=== PATIENT | female | born 1960 | race Caucasian/White ===

== ENCOUNTER 2018-12-24 19:50 | Inpatient (IN) | payer SELFPAY ==
[~2018-12-24] VITALS: Ht 162.5 cm; Wt 68.2 kg
[~2018-12-24 19:50] MED LIST: BENTYL20 MG PO; CIPRO500 MG PO; FLAGYL500 MG PO; HYDROCODONE BIT1 T11 PO; NKHM; PROTONIX40 MG PO
[2018-12-24 19:54] VITALS: BP 137/79
[2018-12-24 20:24] LABS: BASO # 0.1 10*3/uL (0.0-0.1); BASO % 0.4 % (0.0-1.0); EOS # 0.1 10*3/uL (0.0-0.4); EOS % 0.8 % (1.0-4.0); HEMATOCRIT 50.5 % (37.0-47.0); HEMOGLOBIN 16.9 g/dl (12.0-16.0); LYMPH # 2.6 10*3/uL (1.3-4.4); LYMPH % 14.8 % (27.0-41.0); MEAN CORPUSCULAR HGB 30.1 pg (27.0-31.0); MEAN CORPUSCULAR HGB CONC 33.5 g/dl (33.0-37.0); MEAN PLATELET VOLUME 11.9 fl (9.6-12.3); MONO # 0.9 10*3/uL (0.1-1.0); MONO % 5.2 % (3.0-9.0); NEUT # 13.8 10*3/uL (2.3-7.9); NEUT % 78.4 % (47.0-73.0); PLATELET COUNT AUTOMATED 184 10*3/uL (130-400); RED BLOOD COUNT 5.61 10*6/uL (4.10-5.10); RED CELL DISTRI WIDTH 12.9 % (0-14.5); WHITE BLOOD COUNT 17.6 10*3/uL (4.8-10.8)
[2018-12-24 20:26] LABS: BILIRUBIN NEGATIVE (NEGATIVE); BLOOD TRACE-INTACT (NEGATIVE); CLARITY SL CLOUDY (CLEAR); COLOR YELLOW (YELLOW); GLUCOSE NEGATIVE (NEGATIVE); KETONE NEGATIVE (NEGATIVE); LEUKO ESTERASE TRACE (NEGATIVE); NITRITE NEGATIVE (NEGATIVE); SPECIFIC GRAVITY 1.015 (1.005-1.030); UROBILINOGEN 0.2 E.U./dl (0.2-1.0)
[2018-12-24 20:39] LABS: BACTERIA 1+; RBC 0-2 rbc/hpf (0-2)
[2018-12-24 20:46] LABS: ALBUMIN 3.7 gm/dl (3.1-4.5); ALKALINE PHOSPHATASE 85 U/L (45-117); BUN 12 mg/dl (7-24); CHLORIDE 104 mmol/L (98-107); CREATININE 0.84 mg/dL (0.55-1.02); LIPASE 98 U/L (73-393); SGOT/AST 17 IU/L (3-35); SGPT/ALT 34 U/L (12-78); SODIUM 137 mmol/L (136-145); TOTAL PROTEIN 7.8 gm/dL (6.4-8.2)
[2018-12-24 22:40] VITALS: BP 142/85
[2018-12-24 22:50] VITALS: BP 134/78
--- NOTE | 2018-12-24 22:50 | NUR ---
A 58, admitted to , under the services of VICTORINA Reyes DO with a diagnosis of . Chief complaint is ABDOMINAL PAIN. Patient arrived via CART from ER. Monitor applied. Initial assessment completed. Vital signs taken and recorded. VICTORINA REYES DO notified of admission to the unit. Orders received. See assessment for past medical history, medications and allergies. Patient and/or family oriented to unit. [facility] reviewed. Clothing/patient valuable form completed. TANIYA SANTIAGO
--- NOTE | 2018-12-25 00:15 | NUR ---
PATIENT REQUESTING PAIN MEDICATION FOR ABDOMINAL PAIN RATED 8/10 ON 0/10 SCALE. MORPHINE ADMINISTERED PRESCRIBED, WILL MONITOR FOR EFFECTIVENESS.
--- NOTE | 2018-12-25 01:15 | NUR ---
PATIENT RESTING WITH EYES CLOSED AT THIS TIME. RESPIRATIONS EASY AND UNLABORED ON ROOM AIR. CALL NEWELL WITHIN REACH. WILL MONITOR.
--- NOTE | 2018-12-25 03:23 | NUR ---
24 HR chart check completed.
--- NOTE | 2018-12-25 06:31 | NUR ---
PATIENT REQUESTING PAIN MEDICATION FOR ABDOMINAL PAIN RATED 8/10 ON 0/10 SCALE. MORPHINE ADMINISTERED PRESCRIBED. WILL MONITOR FOR EFFECTIVENESS.
[2018-12-25 07:13] LABS: ALBUMIN 3.1 gm/dl (3.1-4.5); ALKALINE PHOSPHATASE 73 U/L (45-117); BUN 11 mg/dl (7-24); CHLORIDE 105 mmol/L (98-107); CHOLESTEROL 74 mg/dL (<200); HDL CHOLESTEROL 48 mg/dl (40-60); INTERNATIONAL NORM RATIO 0.9 (2.0-3.5); LDL CHOLESTEROL 15 mg/dL (9-159); PHOSPHOROUS 3.2 mg/dL (2.5-4.9); POTASSIUM 3.9 mmol/L (3.5-5.1); SGOT/AST 12 IU/L (3-35); SGPT/ALT 29 U/L (12-78); SODIUM 139 mmol/L (136-145); TOTAL PROTEIN 6.5 gm/dL (6.4-8.2); TRIGLYCERIDES 56 mg/dl (<150); VLDL CHOLESTEROL 11 mg/dL (6-40)
[2018-12-25 07:18] LABS: CREATININE 0.82 mg/dL (0.55-1.02)
[2018-12-25 07:35] LABS: BASO % 0.3 % (0.0-1.0); EOS # 0.1 10*3/uL (0.0-0.4); EOS % 1.1 % (1.0-4.0); HEMATOCRIT 45.1 % (37.0-47.0); LYMPH # 2.2 10*3/uL (1.3-4.4); MEAN CELL VOLUME 90.9 fl (81.0-99.0); MEAN CORPUSCULAR HGB 30.2 pg (27.0-31.0); MEAN CORPUSCULAR HGB CONC 33.3 g/dl (33.0-37.0); MEAN PLATELET VOLUME 11.6 fl (9.6-12.3); MONO # 0.8 10*3/uL (0.1-1.0); MONO % 6.4 % (3.0-9.0); NEUT # 9.1 10*3/uL (2.3-7.9); NEUT % 73.9 % (47.0-73.0); PLATELET COUNT AUTOMATED 151 10*3/uL (130-400); RED BLOOD COUNT 4.96 10*6/uL (4.10-5.10); RED CELL DISTRI WIDTH 12.8 % (0-14.5); WHITE BLOOD COUNT 12.3 10*3/uL (4.8-10.8)
[2018-12-25 08:00] VITALS: BP 108/70
--- NOTE | 2018-12-25 09:22 | NUR ---
C/O PAIN OF 10 TO ABD. NORCO GIVEN AT THIS TIME. WILL CONT TO MONITOR. CALL LIGHT IN REACH.
[2018-12-25 09:39] LABS: VITAMIN D, 25-HYDROXY 24.4 ng/mL (30-100)
--- NOTE | 2018-12-25 10:22 | NUR ---
ZOFRAN EFF. WILL CONT TO MONITOR.
--- NOTE | 2018-12-25 10:44 | NUR ---
PT STATES AFTER GETTING NORCO SHE IS "SWEATY, HOT AND FEELS LIKE SHE'S HAVING AN OUT OF BODY EXPERIENCE". I ASKED HER IS SHE'S EVER HAD IT BEFORE OR VICODIN AND SHE STATED APPROX 15YRS AGO AND THEN BECAME NAUSEOUS. I THEN ASKED HER IF SHE'S EVER HAD CIPRO BEFORE AND SHE SAID NO. SHE THEN STATED HER ARM WAS EXTREMELY ITCHY ABOVE THE IV SITE AND THEN STOPPED. DR JEFFREY NOTIFIED AND HE STATED HE WILL BE SEEING HER SOON, NOT TO GIVE ANYMORE NORCO OR CIPRO.
[2018-12-25 12:00] VITALS: BP 126/73
--- NOTE | 2018-12-25 12:13 | NUR ---
Mon[employer]al Stonemason in to talk to patient. Patient states lives at HOME with JORDY. There are FEW steps in the home. Physician: NONE AT THIS TIME. HAS LIST IN ROOM [facility]acy: [facility] Home health services: NONE Patient's level of ADLs: INDEPENDENT Patient has working utilities: YES DME: NONE Follow-up physician's appointment after d/c: WILL PICK FROM LIST AND MAKE APPOINTMENTS Does patient want to access PORTAL?: NO Discharge plan PT LIVES AT HOME WITH JORDY AND IS INDEPENDENT IN HER CARE. DENIES SHE HAS NEEDS ON DISCHARGE. STATES SHE WILL RETURN HOME. WILL CONTINUE TO FOLLOW. STATES SHE WILL HAVE A RIDE HOME.. KARRIE SANTIAGO
[2018-12-25 16:00] VITALS: BP 124/76
--- NOTE | 2018-12-25 19:28 | NUR ---
C/O PAIN 05/20 TO ABDOMEN. MORPHINE GIVEN AT THIS TIME.WILL CONT TO MONITOR.
--- NOTE | 2018-12-25 19:35 | NUR ---
PT WITH EMESIS. ZOFRAN GIVEN AT THIS TIME.
--- NOTE | 2018-12-25 19:59 | NUR ---
NOTIFIED DR MORENO OF PATIENT CONTINUED EMESIS AND PAIN DESPITE PRN MEDICATIONS AND THAT PATIENT FEELS LIKE ALL HER FOOD IS STUCK IN HER CHEST AFTER EATING DINNER. STATES SHE TRIED TO MOVE HER BOWELS BUT WAS UNABLE TO.
[2018-12-25 20:00] VITALS: BP 152/88
--- NOTE | 2018-12-25 23:08 | NUR ---
PATIENT SLEEPING. NO S/S OF DISTRESSS NOTED AT THIS TIME
[2018-12-26] VITALS: BP 122/73
[2018-12-26 06:33] LABS: BASO # 0.1 10*3/uL (0.0-0.1); BASO % 0.7 % (0.0-1.0); EOS # 0.1 10*3/uL (0.0-0.4); EOS % 1.3 % (1.0-4.0); HEMATOCRIT 48.4 % (37.0-47.0); HEMOGLOBIN 15.8 g/dl (12.0-16.0); LYMPH # 2.3 10*3/uL (1.3-4.4); LYMPH % 25.5 % (27.0-41.0); MEAN CELL VOLUME 92.2 fl (81.0-99.0); MEAN CORPUSCULAR HGB 30.1 pg (27.0-31.0); MEAN CORPUSCULAR HGB CONC 32.6 g/dl (33.0-37.0); MEAN PLATELET VOLUME 12.3 fl (9.6-12.3); MONO # 0.5 10*3/uL (0.1-1.0); MONO % 5.4 % (3.0-9.0); NEUT % 66.9 % (47.0-73.0); PLATELET COUNT AUTOMATED 178 10*3/uL (130-400); RED BLOOD COUNT 5.25 10*6/uL (4.10-5.10); RED CELL DISTRI WIDTH 12.7 % (0-14.5); WHITE BLOOD COUNT 8.9 10*3/uL (4.8-10.8)
[2018-12-26 07:02] LABS: BUN 11 mg/dl (7-24); CHLORIDE 105 mmol/L (98-107); POTASSIUM 3.8 mmol/L (3.5-5.1); SODIUM 142 mmol/L (136-145)
[2018-12-26 08:00] VITALS: BP 120/64
[2018-12-26 08:08] VITALS: BP 118/82
[2018-12-26] MEDS ORDERED: AUGMENTIN 875-875 MG PO (11:31)
[2018-12-26] MEDS ORDERED: VITAMIN D32000 UNI1 PO (11:31)
--- NOTE | 2018-12-26 11:38 | NUR ---
PT CONTINUES TO DENY NEEDS ON DISCHARGE. WILL CONTINUE TO FOLLOW.
[2018-12-26 12:00] VITALS: BP 134/66
--- NOTE | 2018-12-26 13:36 | NUR ---
PT DISCHARGED AT THIS TIME. IV REMOVED AND PRESSURE DRESSING APPLIED. VERBALIZED UNDERSTANDING OF DISCHARGE INSTRUCTIONS.
[2019-01-30] MEDS ORDERED: FLAGYL500 MG PO (13:07)
[2019-01-30] MEDS ORDERED: CIPRO500 MG PO (13:07)
== END 2018-12-26 13:43 | disposition home or self-care (01) | DRG 392 ==
LOC: ED 19:50 → EDHOLD 21:50 → 5E 22:07
PROVIDERS: Family Medicine; Student in an Organized Health Care Education/Training Program; ADMIT Internal Medicine
DX: K57.32 Diverticulitis of large intestine without perforation or abscess without bleeding (principal); D75.1 Secondary polycythemia; E66.3 Overweight; K76.0 Fatty (change of) liver, not elsewhere classified; J44.9 Chronic obstructive pulmonary disease, unspecified; F17.210 Nicotine dependence, cigarettes, uncomplicated; E11.65 Type 2 diabetes mellitus with hyperglycemia; E55.9 Vitamin D deficiency, unspecified; Z82.49 Family history of ischemic heart disease and other diseases of the circulatory system; Z84.1 Family history of disorders of kidney and ureter; Z71.6 Tobacco abuse counseling; Z83.3 Family history of diabetes mellitus; Z68.25 Body mass index [BMI] 25.0-25.9, adult

== ENCOUNTER → 2019-01-09 | Outpatient (CLI) | payer SELFPAY ==
[~2019-01-09] MED LIST changes: +AUGMENTIN 875-875 MG PO; +VITAMIN D32000 UNI1 PO
== END | disposition home or self-care (01) ==
LOC: RESCLI 01:21
DX: K57.90 Diverticulosis of intestine, part unspecified, without perforation or abscess without bleeding (principal); K57.92 Diverticulitis of intestine, part unspecified, without perforation or abscess without bleeding; E11.9 Type 2 diabetes mellitus without complications; E66.3 Overweight; B37.0 Candidal stomatitis; B37.3 Candidiasis of vulva and vagina; Z88.8 Allergy status to other drugs, medicaments and biological substances

== ENCOUNTER 2019-01-27 11:20 | Emergency (ER) | payer OTHER ==
[~2019-01-27] VITALS: Ht 162.5 cm; Wt 68.0 kg
[2019-01-27 12:17] LABS: BASO # 0.1 10*3/uL (0.0-0.1); BASO % 0.5 % (0.0-1.0); EOS # 0.1 10*3/uL (0.0-0.4); HEMATOCRIT 48.1 % (37.0-47.0); HEMOGLOBIN 15.9 g/dl (12.0-16.0); LYMPH # 2.1 10*3/uL (1.3-4.4); LYMPH % 17.7 % (27.0-41.0); MEAN CELL VOLUME 92.1 fl (81.0-99.0); MEAN CORPUSCULAR HGB 30.5 pg (27.0-31.0); MEAN CORPUSCULAR HGB CONC 33.1 g/dl (33.0-37.0); MEAN PLATELET VOLUME 11.6 fl (9.6-12.3); MONO # 0.5 10*3/uL (0.1-1.0); MONO % 4.6 % (3.0-9.0); NEUT # 8.9 10*3/uL (2.3-7.9); NEUT % 75.9 % (47.0-73.0); PLATELET COUNT AUTOMATED 173 10*3/uL (130-400); RED BLOOD COUNT 5.22 10*6/uL (4.10-5.10); RED CELL DISTRI WIDTH 12.7 % (0-14.5); WHITE BLOOD COUNT 11.8 10*3/uL (4.8-10.8)
[2019-01-27 12:32] LABS: ALBUMIN 3.5 gm/dl (3.1-4.5); ALKALINE PHOSPHATASE 81 U/L (45-117); BUN 13 mg/dl (7-24); CHLORIDE 105 mmol/L (98-107); CREATININE 0.91 mg/dL (0.55-1.02); POTASSIUM 3.8 mmol/L (3.5-5.1); SGOT/AST 17 IU/L (3-35); SGPT/ALT 42 U/L (12-78); SODIUM 139 mmol/L (136-145)
[2019-01-27] MEDS ORDERED: FLAGYL500 MG PO (15:55)
[2019-01-27] MEDS ORDERED: CIPRO500 MG PO (15:55)
[2019-01-30] MEDS ORDERED: FLAGYL500 MG PO (13:07)
[2019-01-30] MEDS ORDERED: CIPRO500 MG PO (13:07)
== END 2019-01-27 16:20 | disposition home or self-care (01) ==
LOC: ED 11:20
PROVIDERS: Emergency Medicine
DX: K57.32 Diverticulitis of large intestine without perforation or abscess without bleeding (principal); N61.1 Abscess of the breast and nipple; E11.9 Type 2 diabetes mellitus without complications; J44.9 Chronic obstructive pulmonary disease, unspecified; Z87.891 Personal history of nicotine dependence; Z79.899 Other long term (current) drug therapy; Z79.2 Long term (current) use of antibiotics

== ENCOUNTER → 2019-02-28 | Day surgery (SDC) | payer OTHER ==
[~2019-02-28] VITALS: Ht 162.5 cm; Wt 68.9 kg
[~2019-02-28] MED LIST changes: +JANUVIA25 MG PO
--- NOTE | ~2019-02-28 | O ---
[place], [place] OPERATIVE NOTE NAME: MARLEN VARGAS UNIT #: [id number] ROOM: DOCTOR: SHASHI LOGAN MD BIRTHDATE: [birth year] DOS: 02/28/2019 INDICATIONS: This is a 58-year-old patient with history of diverticulitis, status post antibiotic therapy, history of diarrhea. ALLERGIES: No known medication. FAMILY HISTORY: Noncontributory. PAST SURGICAL HISTORY: Fibroid uterus. PAST MEDICAL HISTORY: Fatty liver, ETOH for 35 years, degenerative joint disease, and hepatic steatosis. SOCIAL HISTORY: Smoker. Social alcohol consumer at the present time. PROCEDURE: Today's procedure part of investigation is colonoscopy plus polypectomy. PREMEDICATION: Propofol. SCOPE: Olympus forward-viewing colonoscope 10L video. DESCRIPTION OF PROCEDURE: After putting the patient in left lateral position and application of lubricant to the scope, the scope was introduced. Thereafter, under direct visualization, advanced through the length of colon to the base of cecum. Appendiceal orifice identified. Scope was gradually withdrawn from ascending, transverse, descending colon. Sessile polypoid lesion in sigmoid colon with piecemeal polypectomy removed. The patient extubated, tolerated the procedure well. IMPRESSION: Moderate diverticulosis coli, sessile colonic polyp at sigmoid colon, status post piecemeal polypectomy. PLAN AND DISCUSSION: High fiber and fruit diet. ACTIVITY: Ad kim. FOLLOWUP: As outpatient. Thank you very much indeed. [place], [place] OPERATIVE NOTE NAME: MARLEN VARGAS UNIT #: [id number] ROOM: DOCTOR: SHASHI LOGAN MD BIRTHDATE: [birth year] SHASHI LOGAN MD CM:OPRECORD:OPERATIVE NOTE [id number] SHASHI LOGAN MD 02/28/19 1603 interface
[2019-02-28 12:21] VITALS: BP 136/81
[2019-02-28 13:20] VITALS: BP 165/84
[2019-02-28 13:35] VITALS: BP 152/81
[2019-02-28 13:44] VITALS: BP 161/81
== END | disposition home or self-care (01) ==
LOC: SDC 02-25 11:00
DX: Z12.11 Encounter for screening for malignant neoplasm of colon (principal); J44.9 Chronic obstructive pulmonary disease, unspecified; E11.9 Type 2 diabetes mellitus without complications; F17.210 Nicotine dependence, cigarettes, uncomplicated; Z98.890 Other specified postprocedural states; Z83.3 Family history of diabetes mellitus; Z82.49 Family history of ischemic heart disease and other diseases of the circulatory system

== ENCOUNTER → 2019-03-19 | Outpatient (CLI) | payer OTHER | END | disposition home or self-care (01) | LOC: RESCLI 00:54 | DX: K57.90 Diverticulosis of intestine, part unspecified, without perforation or abscess without bleeding (principal); E11.9 Type 2 diabetes mellitus without complications; J44.9 Chronic obstructive pulmonary disease, unspecified; K76.0 Fatty (change of) liver, not elsewhere classified; E66.3 Overweight; F17.200 Nicotine dependence, unspecified, uncomplicated; Z68.29 Body mass index [BMI] 29.0-29.9, adult; Z79.899 Other long term (current) drug therapy ==

== ENCOUNTER → 2019-05-27 | Outpatient (CLI) | payer OTHER | END | disposition home or self-care (01) | LOC: RESCLI 01:35 | DX: K57.90 Diverticulosis of intestine, part unspecified, without perforation or abscess without bleeding (principal); E11.9 Type 2 diabetes mellitus without complications; J44.9 Chronic obstructive pulmonary disease, unspecified; K76.0 Fatty (change of) liver, not elsewhere classified; E66.3 Overweight; I10 Essential (primary) hypertension; F17.200 Nicotine dependence, unspecified, uncomplicated; Z72.0 Tobacco use; Z71.6 Tobacco abuse counseling; Z79.899 Other long term (current) drug therapy ==

== ENCOUNTER → 2019-05-30 | Outpatient (CLI) | payer OTHER ==
[2019-05-30 17:08] LABS: BASO # 0.1 10*3/uL (0.0-0.1); BASO % 0.7 % (0.0-1.0); EOS # 0.1 10*3/uL (0.0-0.4); EOS % 1.4 % (1.0-4.0); HEMATOCRIT 52.3 % (37.0-47.0); HEMOGLOBIN 17.4 g/dl (12.0-16.0); LYMPH # 2.9 10*3/uL (1.3-4.4); LYMPH % 28.7 % (27.0-41.0); MEAN CELL VOLUME 90.6 fl (81.0-99.0); MEAN CORPUSCULAR HGB 30.2 pg (27.0-31.0); MEAN CORPUSCULAR HGB CONC 33.3 g/dl (33.0-37.0); MEAN PLATELET VOLUME 12.3 fl (9.6-12.3); MONO # 0.5 10*3/uL (0.1-1.0); MONO % 5.2 % (3.0-9.0); NEUT # 6.5 10*3/uL (2.3-7.9); NEUT % 63.8 % (47.0-73.0); PLATELET COUNT AUTOMATED 195 10*3/uL (130-400); RED BLOOD COUNT 5.77 10*6/uL (4.10-5.10); RED CELL DISTRI WIDTH 12.1 % (0-14.5); WHITE BLOOD COUNT 10.2 10*3/uL (4.8-10.8)
[2019-05-30 17:23] LABS: ALBUMIN 4.1 gm/dl (3.1-4.5); ALKALINE PHOSPHATASE 95 U/L (45-117); BUN 13 mg/dl (7-24); CHLORIDE 102 mmol/L (98-107); CREATININE 0.94 mg/dL (0.55-1.02); SGOT/AST 37 IU/L (3-35); SGPT/ALT 65 U/L (12-78); SODIUM 138 mmol/L (136-145); TOTAL PROTEIN 8.1 gm/dL (6.4-8.2)
== END | disposition home or self-care (01) ==
LOC: LAB 16:50
PROVIDERS: Student in an Organized Health Care Education/Training Program
DX: E11.9 Type 2 diabetes mellitus without complications (principal); I10 Essential (primary) hypertension

== ENCOUNTER → 2019-07-02 | Outpatient (CLI) | payer OTHER | END | disposition home or self-care (01) | LOC: RESCLI 01:46 | DX: E11.9 Type 2 diabetes mellitus without complications (principal); J44.9 Chronic obstructive pulmonary disease, unspecified; K76.0 Fatty (change of) liver, not elsewhere classified; K57.90 Diverticulosis of intestine, part unspecified, without perforation or abscess without bleeding; E66.3 Overweight; I10 Essential (primary) hypertension; Z72.0 Tobacco use; Z71.6 Tobacco abuse counseling ==